=== PATIENT | female | born 1995 | race African-American/Black ===

== ENCOUNTER 2023-09-05 16:17 | Emergency (ER) | payer MEDICARE ==
[~2023-09-05] VITALS: Ht 167.6 cm; Wt 128.6 kg
[2023-09-05] MEDS ORDERED: OMEP10CASR PO (16:27)
[2023-09-05] MEDS ORDERED: ATOG10TA PO (16:27)
[2023-09-05] MEDS ORDERED: UBRO100T PO (16:27)
[2023-09-05] MEDS ORDERED: PREG25CA PO (16:27)
[2023-09-05] MEDS ORDERED: CEPH500C PO (20:49)
[2023-09-05 20:56] VITALS: BP 158/89; TEMP 97.6; O2SAT 100
== END 2023-09-05 20:56 | disposition home or self-care (01) ==
LOC: M ED 16:17
DX: L03.313 Cellulitis of chest wall (principal); K21.9 Gastro-esophageal reflux disease without esophagitis; F17.200 Nicotine dependence, unspecified, uncomplicated; Z79.899 Other long term (current) drug therapy; Z91.040 Latex allergy status